=== PATIENT | female | born 1955 | race Caucasian/White ===

== ENCOUNTER 2017-04-23 01:20 | Emergency (ER) | payer OTHER ==
[~2017-04-23] VITALS: Ht 175.3 cm; Wt 100.4 kg
[~2017-04-23 01:20] MED LIST: ASPI81CH CHEW; COUM2TAB PO; METO25TA3 PO; METO25TA6 PO
[2017-04-23 01:27] VITALS: BP 118/84; PULSE 100; RESP 16; TEMP 98.3; O2SAT 97
[2017-04-23] MEDS ORDERED: LISI-519 PO (01:38)
[2017-04-23] MEDS ORDERED: METO25TA3 PO (01:38)
[2017-04-23 01:40] VITALS: BP 118/84; PULSE 100; RESP 16; TEMP 98.3; O2SAT 97
[2017-04-23] MEDS ORDERED: TRIAMCINOLONE ACETONIDE 40 MG/ML VIAL I-BURSAL ONE (02:00)
--- NOTE | 2017-04-23 02:25 | PD ---
HPI Chief Complaint: Pain: Acute or Chronic Time Seen by Provider: 01:39 Travel History International Travel<30 days: No Contact w/Intl Traveler<30days: No Traveled to known affect area: No History of Present Illness HPI The patient is a right-hand dominant female with a history of Dequervains Tenosynovitis of both wrist who complains of right wrist pain and swelling along the extensor tendon of the thumb for 24 hours. This is her usual area of tenosynovitis. She denies any fever. She has multiple allergies including allergy to lidocaine, she does not want local anesthetic medicine. She states she had a hand surgeon injected the area and he used a numbing spray instead of lidocaine. She has a mechanical heart valve and she has atrial fibrillation. She is on Coumadin. PFSH Past Medical History Hx Anticoagulant Therapy: Yes Atrial Fibrillation: Yes Cardiac Catheterization: Yes Cardiovascular Problems: Yes Diminished Hearing: No Hypertension: Yes Tetanus Vaccination: < 5 Years Influenza Vaccination: No ?: Not Menopausal: Yes : 1 Para: 1 Past Surgical History Cardiac Surgery: Yes (AORTIC VALVE REPLACEMENT) Social History Alcohol Use: Yes (OCCASIONAL WINE) Tobacco Use: No Substance Use: No Allergies-Medications (Allergen,Severity, Reaction): Coded Allergies: codeine (Unverified Allergy, Unknown, Nausea/Vomiting, 04/23/17) epinephrine (Unverified Allergy, Unknown, Shortness of Breath, 04/23/17) iodine (Unverified Allergy, Unknown, Skin Discoloration, 04/23/17) penicillin G (Unverified Allergy, Unknown, Anaphylaxis, 04/23/17) potassium iodide (Unverified Allergy, Unknown, Skin Discoloration, 04/23/17) povidone-iodine (Unverified Allergy, Unknown, Skin Discoloration, 04/23/17) procaine (Unverified Allergy, Unknown, Tachycardia, 04/23/17) pseudoephedrine (Unverified Allergy, Unknown, 04/23/17) PT STATES SHE TOOK ONE MEGAN STRENGTH SUDAFED AND ENDED UP IN THE HOSPITAL WITH HIGH DOASGES OF SUDAFED IN BLOOD. sodium iodide (Unverified Allergy, Unknown, Skin Discoloration, 04/23/17) sodium iodide (Unverified Allergy, Unknown, Skin Discoloration, 04/23/17) Reported Meds & Prescriptions Reported Meds & Active Scripts Active Reported Lisinopril 5 Mg Tab 5 Mg PO DAILY Metoprolol Tartrate 25 Mg Tab 25 Mg PO BID Coumadin (Warfarin) 2 Mg Tab 2 Mg PO DAILY Review of Systems Except as stated in HPI: all other systems reviewed are Neg Physical Exam Narrative GENERAL: Well-nourished, well-developed patient in slight apparent distress with her pain on the right radial wrist. Her vital signs are normal except for heart rate of 100. SKIN: Focused skin assessment warm/dry. There is slight erythema over the area of the extensor tendon of the thumb. HEAD: Normocephalic. EYES: No scleral icterus. No injection or drainage. NECK: Supple, trachea midline. No JVD or lymphadenopathy. CARDIOVASCULAR: Regular rate and rhythm without murmurs, gallops, or rubs. RESPIRATORY: Breath sounds equal bilaterally. No accessory muscle use. GASTROINTESTINAL: Abdomen soft, non-tender, nondistended. MUSCULOSKELETAL: No cyanosis, or edema. BACK: Nontender without obvious deformity. No CVA tenderness. Data Data Last Documented VS Vital Signs Date Time Temp Pulse Resp B/P (MAP) Pulse Ox O2 Delivery O2 Flow Rate FiO2 04/23/17 01:40 98.3 100 16 118/84 (95) 97 Orders Orders Triamcinolone Inj (Kenalog-40 Inj) (04/23/17 02:00) [facility] [place] Medical Decision Making Medical Screen Exam Complete: Yes Emergency Medical Condition: Yes Medical Record Reviewed: Yes Differential Diagnosis Cellulitis, dequerveins T no cellulitis, arthritis, septic joint-highly unlikely Narrative Course The patient has De Quervains Teno synovitis. Unfortunately, lidocaine could not be injected with a steroid so she will be painful for several days before the steroid works. She is to follow-up with her hand surgeon as soon as possible. She should use ice, elevation and rest until then. She is given a splint that she had already to wear. Procedures Procedure Narrative Kenalog-40 injection, 1 cc was used to inject the tendon sheath. The patient was cleaned with ChloraPrep and the procedure was done under sterile technique. A freezing spray was used for anesthesia. Unfortunately, lidocaine could not be injected with the steroid. The patient tolerated the procedure fairly well. Diagnosis Primary Impression: De Quervain's disease (radial styloid tenosynovitis) Additional Instructions: Use local ice, elevation and a splint on the thumb so that you do not move the thumb. Follow-up as soon as possible with your hand surgeon. Disposition: 01 DISCHARGE HOME Condition: Stable David Albert MD Apr 23, 2017 02:25
[2017-04-23 02:39] VITALS: BP 116/80; PULSE 94; RESP 16; O2SAT 97
== END 2017-04-23 02:40 | disposition home or self-care (01) ==
LOC: PHED 01:20
DX: M65.4 Radial styloid tenosynovitis [de Quervain] (principal); I10 Essential (primary) hypertension; Z95.2 Presence of prosthetic heart valve; Z79.01 Long term (current) use of anticoagulants; Z86.79 Personal history of other diseases of the circulatory system
CPT/HCPCS: 20550; 99283; J3301